=== PATIENT | female | born 1965 | race Caucasian/White ===

== ENCOUNTER 2019-08-08 13:21 | Emergency (ER) | payer MEDICARE, MEDICAID ==
[~2019-08-08] VITALS: Ht 154.9 cm; Wt 85.9 kg
[2019-08-08 13:26] VITALS: TEMP 98.2
[2019-08-08 14:35] LABS: BASO % 0.2 % (0.0-2.0); EOS # 0.2 (0.0-0.7); EOS % 1.7 % (0-4.0); GRAN # 6.1 (1.4-6.5); GRAN % 65.6 % (42.2-75.2); LYMPH # 2.1 (1.2-3.4); LYMPH % 22.9 % (20.0-51.0); MEAN CELL VOLUME 93 fl (80.0-100.0); MEAN CORPUSCULAR HGB CONC 28 g/dl (33.0-37.0); MEAN PLATELET VOLUME 10.9 fl (7.4-10.4); MONO # 0.8 (0.1-0.6); MONO % 8.6 % (1.7-9.3); PLATELET COUNT 178 K/mm3 (130-400); RED BLOOD COUNT 3.15 M/mm3 (4.10-5.30); REDCELL DISTRIBUTION WIDTH-CV 16.3 % (11.5-14.5)
[2019-08-08 14:41] LABS: ALBUMIN 4.1 gm/dL (3.5-5.0); BILIRUBIN,TOTAL 0.2 mg/dL (0.0-1.0); CREATININE, serum 0.55 (0.52-1.25); HEMATOCRIT 29.2 % (37.0-47.0); HEMOGLOBIN 8.1 g/dl (12.5-16.0); MEAN CORPUSCULAR HEMOGLOBIN 26 pg (27.0-31.0); POTASSIUM 3.9 mmol/L (3.4-5.0); TOTAL PROTEIN 8.2 gm/dL (6.4-8.2)
[2019-08-08 14:44] LABS: INR 1.1 (0.8-3.0); PROTHROMBIN TIME 12.5 SECONDS (9.7-12.8)
[2019-08-08 14:54] LABS: TROPONIN-I 2.59 ng/mL (0.000-0.035)
[2019-08-08] MEDS ORDERED: TRESIBA FL100 UNIT/1 SQ (15:23)
[2019-08-08] MEDS ORDERED: NOVOLOG FLEX100 U/ML SQ (15:24)
[2019-08-08] MEDS ORDERED: PAXIL 20MG20 MG PO (15:25)
[2019-08-08] MEDS ORDERED: PROTONIX20 MG PO (15:26)
[2019-08-08] MEDS ORDERED: JARDIANCE10 (15:26)
[2019-08-08] MEDS ORDERED: MS CONTIN 115 MG/TAB PO (15:27)
[2019-08-08] MEDS ORDERED: DULCOLAX STOOL100 MG PO (15:28)
[2019-08-08] MEDS ORDERED: ASPIRIN 81M81 MG/TA2 PO (15:41)
[2019-08-08] MEDS ORDERED: NEURONTIN300 MG/CAP PO (15:43)
[2019-08-08] MEDS ORDERED: ULTRAM 50MG TAB50 MG PO (15:43)
[2019-08-08] MEDS ORDERED: MORPHINE 1515 MG/TAB PO (15:44)
[2019-08-08] MEDS ORDERED: TYLENOL 325MG325 MG PO (15:46)
[2019-08-08] MEDS ORDERED: AFRIN 15 ML15 ML NS (15:46)
[2019-08-08 16:25] VITALS: BP 163/90; PULSE 84
== END 2019-08-08 16:28 | disposition short-term general hospital (02) ==
LOC: COL.ER 13:21
PROVIDERS: Emergency Medicine
DX: I21.9 Acute myocardial infarction, unspecified (principal); R79.89 Other specified abnormal findings of blood chemistry; R94.31 Abnormal electrocardiogram [ECG] [EKG]; E10.9 Type 1 diabetes mellitus without complications; Z79.4 Long term (current) use of insulin
CPT/HCPCS: J1644; J7070

== ENCOUNTER 2022-06-28 07:30 | Outpatient (RCR) | payer MEDICARE, MEDICAID ==
--- NOTE | 2022-06-26 07:25 | NUR ---
Spoke with Kristopher in blood bank, will have labs drawn and will have them sent out to confirm type and cross for irradiated prbcs. Will notify Pt's doctors office when open this am. Will notify patient later today when blood will be available for transfusion and schedule.
[2022-06-28] VITALS (10 sets, daily range): BP systolic 118–153; BP diastolic 50–72; PULSE 55–72; TEMP 97.7–98.6
[~2022-06-28] VITALS: Ht 154.9 cm; Wt 83.6 kg
[~2022-06-28 07:30] MED LIST: AFRIN 15 ML15 ML NS; ASPIRIN 81M81 MG/TA2 PO; DULCOLAX STOOL100 MG PO; JARDIANCE10; MORPHINE 1515 MG/TAB PO; MS CONTIN 115 MG/TAB PO; NEURONTIN300 MG/CAP PO; NOVOLOG FLEX100 U/ML SQ; PAXIL 20MG20 MG PO; PROTONIX20 MG PO; TRESIBA FL100 UNIT/1 SQ; TYLENOL 325MG325 MG PO; ULTRAM 50MG TAB50 MG PO
[2022-06-28] MEDS ORDERED: LIPITOR 80MG80 MG PO (09:02)
[2022-06-28] MEDS ORDERED: ZITHROMAX 250M250 MG PO (09:03)
[2022-06-28] MEDS ORDERED: ZETIA 10MG TAB10 MG PO (09:04)
[2022-06-28] MEDS ORDERED: LASIX 20MG TABL20 MG PO (09:04)
[2022-06-28] MEDS ORDERED: BUSPAR DIVIDOSE15 MG PO (09:04)
[2022-06-28] MEDS ORDERED: ZESTRIL 10MG10 MG PO (09:06)
[2022-06-28] MEDS ORDERED: LOPRESSOR 550 MG/TAB PO (09:07)
[2022-06-28] MEDS ORDERED: SINGULAIR 110 MG/TAB PO (09:07)
[2022-06-28] MEDS ORDERED: AFRIN 15 ML15 ML NS (09:08)
[2022-06-28] MEDS ORDERED: ZOLOFT 100MG100 MG PO (09:08)
[2022-06-28] MEDS ORDERED: DESYREL 50MG50 MG PO (09:09)
[2022-06-28] MEDS ORDERED: VITAMIN D31000 I1 PO (09:10)
[2022-06-28] MEDS ORDERED: NOVOLOG 100U100 U/M1 (09:12)
--- NOTE | 2022-06-28 12:50 | NUR ---
Pt exits dept with son. She tolerated transfusions without issue. IV site wrapped with coban.
== END 2022-06-28 12:50 ==
LOC: EUO 07:30
DX: D64.9 Anemia, unspecified (principal)
CPT/HCPCS: J7050; P9040

== ENCOUNTER 2022-11-17 13:40 | Inpatient (IN) | payer MEDICARE, MEDICAID ==
[~2022-11-17] VITALS: Ht 154.9 cm; Wt 87.3 kg
[2022-11-17] VITALS (216 sets, daily range): BP systolic 84–91; BP diastolic 41–43; PULSE 60–80; TEMP 98.1; O2SAT 32–100
[~2022-11-17 13:40] MED LIST changes: +BUSPAR DIVIDOSE15 MG PO; +DESYREL 50MG50 MG PO; +LASIX 20MG TABL20 MG PO; +LIPITOR 80MG80 MG PO; +LOPRESSOR 550 MG/TAB PO; +NOVOLOG 100U100 U/M1; +SINGULAIR 110 MG/TAB PO; +VITAMIN D31000 I1 PO; +ZESTRIL 10MG10 MG PO; +ZETIA 10MG TAB10 MG PO; +ZITHROMAX 250M250 MG PO; +ZOLOFT 100MG100 MG PO
[2022-11-17 14:27] LABS: BASO % 0.3 % (0.0-2.0); EOS # 0.3 K/mm3 (0.0-0.7); EOS % 3.6 % (0.0-4.0); GRAN # 3.8 K/mm3 (1.4-6.5); GRAN % 48.1 % (42.2-75.2); HEMATOCRIT 30.3 % (37.0-47.0); LYMPH # 2.8 K/mm3 (1.2-3.4); MEAN CELL VOLUME 104 fl (80.0-100.0); MEAN CORPUSCULAR HEMOGLOBIN 31 pg (27-31); MEAN CORPUSCULAR HGB CONC 30 g/dl (33.0-37.0); MEAN PLATELET VOLUME 12.2 fl (7.4-10.4); MONO # 0.9 K/mm3 (0.1-0.6); MONO % 11.5 % (1.7-9.3); PLATELET COUNT 100 K/mm3 (130-400); RED BLOOD COUNT 2.91 M/mm3 (4.10-5.30)
[2022-11-17 15:32] LABS: COLLECTION METHOD IN
[2022-11-17 15:49] LABS: MUCOUS Present (NOT PRESENT); SQUAMOUS EPITHELIAL None Seen /hpf (0-10); URINE APPEARANCE Clear (CLEAR/HAZY); URINE BACTERIA None Seen /hpf (NONE SEEN); URINE COLOR Yellow (YELLOW); URINE GLUCOSE 2+ (NEGATIVE); URINE PROTEIN(semi-quant) Negative (NEGATIVE); URINE RBC 0-2 /hpf (0-2)
[2022-11-17 15:50] LABS: URINE BLOOD Negative (NEGATIVE); URINE KETONE Negative (NEGATIVE); URINE NITRATE Negative (NEGATIVE); URINE UROBILINOGEN 0.2 E.U/dL (0.2-1.0)
[2022-11-17 15:54] LABS: ALBUMIN 3.5 gm/dL (3.5-5.0); BILIRUBIN,TOTAL 0.6 mg/dL (0.2-1.2); CALCIUM 8.7 mg/dL (8.4-10.2); CREATININE, serum 0.8 mg/dL (0.57-1.11); POTASSIUM 4.5 mmol/L (3.5-4.5); TOTAL PROTEIN 6.5 gm/dL (6.2-8.1)
[2022-11-17] MEDS ORDERED: 00186-0370-20 IH (16:57)
[2022-11-17] MEDS ORDERED: VITAMIN D362.5 MC1 PO (16:58)
[2022-11-17 17:08] LABS: ARTERIAL BLD GAS O2 SATURATION 84.4 % (92-100); ARTERIAL BLD GAS TCO2 CT 60.3; ARTERIAL BLOOD GAS BASE EXCESS 22.1 (-2-2); ARTERIAL BLOOD GAS HCO3 55.5 meq/L (22-26)
[2022-11-17 17:10] LABS: ARTERIAL BLOOD GAS PCO2 156.6 mmHg (35-45); ARTERIAL BLOOD GAS pH 7.17 (7.35-7.45)
--- NOTE | 2022-11-17 18:45 | NUR ---
RECIEVED REPORT FROM YOLI. PT IS STABLE FOR TRANSPORT TO ICU.
--- NOTE | 2022-11-17 19:00 | NUR ---
PT ARRIVED TO ICU 2. ON BIPAP. TRANSFERED TO ICU BED. SON TAKEN TO WAITING ROOM AT THIS TIME. PT ALERT AND ORIENTED, LABORED BREATHING. VERY DIMINISHED BREATH SOUNDS. B/P "SOFT" PER REPORT FROM TRANSFERING NURSE. 100/52 AT THE TIME OF TRANSFER. 500ML LR BOLUS RUNNING AT THIS TIME. BIPAP 18/8 55% FIO2
--- NOTE | 2022-11-17 20:00 | NUR ---
DR. SLOAN AT BEDSIDE. LENGTHY CONVERSATION WITH RENÉE (BEDSIDE), TOMÁS AND TOMY NICOLE (ON SPEAKER) ABOUT INTUBATION VERSUS STAYING WITH BIPAP AND THE PATIENTS WISHES FOR HER CARE. AFTER A LONG DISCUSSION, WE WILL STAY WITH FULL CODE. INTUBATE IF NECESSARY, BUT WILL AVOID IT IF AT ALL POSSIBLE. WILL REPORT THIS OFF TO DR. PARRA WELL.
[2022-11-17 20:01] LABS: ARTERIAL BLD GAS O2 SATURATION 97.7 % (92-100); ARTERIAL BLD GAS TCO2 CT 60.3; ARTERIAL BLOOD GAS BASE EXCESS 23.7 (-2-2); ARTERIAL BLOOD GAS HCO3 55.7 meq/L (22-26); ARTERIAL BLOOD GAS PO2 112.6 mmHg (80-100)
[2022-11-17 20:02] LABS: ARTERIAL BLOOD GAS PCO2 149.6 mmHg (35-45); ARTERIAL BLOOD GAS pH 7.19 (7.35-7.45)
[2022-11-17 21:40] LABS: ARTERIAL BLD GAS O2 SATURATION 98.1 % (92-100); ARTERIAL BLD GAS TCO2 CT 59.5; ARTERIAL BLOOD GAS BASE EXCESS 23.4 (-2-2)
[2022-11-17 21:41] LABS: ARTERIAL BLOOD GAS PCO2 145.6 mmHg (35-45); ARTERIAL BLOOD GAS PO2 126.9 mmHg (80-100)
[2022-11-18] VITALS (935 sets, daily range): BP systolic 74–170; BP diastolic 44–79; PULSE 54–65; TEMP 97.8–99.6; O2SAT 92–100
[2022-11-18 01:23] LABS: ARTERIAL BLD GAS O2 SATURATION 98.3 % (92-100); ARTERIAL BLD GAS TCO2 CT 48.9; ARTERIAL BLOOD GAS BASE EXCESS 20.7 (-2-2); ARTERIAL BLOOD GAS HCO3 46.8 meq/L (22-26); ARTERIAL BLOOD GAS PCO2 67.3 mmHg (35-45); ARTERIAL BLOOD GAS PO2 103.4 mmHg (80-100); ARTERIAL BLOOD GAS pH 7.46 (7.35-7.45)
--- NOTE | 2022-11-18 02:00 | NUR ---
Patient care, medication administration and nursing documentation occurred during a Daylight Savings Time Change.
--- NOTE | 2022-11-18 05:00 | NUR ---
NO SEDATION VACATION AT THIS TIME DUE TO RECENT INTUBATION AND INSTABILITY
[2022-11-18 05:55] LABS: CALCIUM 8.2 mg/dL (8.4-10.2); CREATININE, serum 1.1 mg/dL (0.57-1.11); PHOSPHOROUS 1.3 mg/dL (2.3-4.7)
--- NOTE | 2022-11-18 06:00 | NUR ---
11/17 - DR VUONG HERE TO PUT IN CENTRAL LINE. PT BECAME AGGITATED, CONFUSED AND PULLING OFF BIPAP MASK. ATTEMPTED TO PUT ON NASAL CANNULA PER PT INSISTENT REQUEST. DESAT TO 40% BEFORE THE PATIENT WOULD ALLOW THE BIPAP MASK TO BE PUT BACK ON HER FACE. CALLED DR. PARRA WHO RECOMMENDED INTUBATING HER. CALLED SON'S IN FROM WAITING ROOM TO VERIFY THAT THAT IS WHAT THEY WANT AND THAT WE NEED TO INTUBATE HER NOW. THE DISCUSSED WITH THE PATIENT. THE SONS DECIDED THAT INTUBATION WAS BEST FOR THE PATIENT AT THIS TIME. CHARLES DOTY HERE TO INTUBATE. 2304 - TIME OUT FOR INTUBATION RSI INDUCTION STARTED 100MG PROPOFOL FOLLOWED BY 100MG SUCCS 2307 - INTUBATION COMPLETE 7.5 ET TUBE, 22CM @ TEETH. 2311 - tIME OUT FOR CENTRAL LINE. DR. VUONG STARTS CENTRAL LINE INSERTION. PROPOFOL DRIP STARTED TO MAINTAIN SEDATION AND COMFORT. 2327 - CENTRAL LINE PLACEMENT COMPLETED. X-RAY CALLED FOR PORT XRAY. 2345 - FIDEL CALLED FOR HYPOTENSION AFTER STARTING SEDATION. AT THIS TIME THE PATIENT IS WIDE AWAKE, B/P 84/43. UNABLE TO ADEQUATELY SEDATE WITHOUT PRESSURE SUPPORT. ORDER FROM DR. PARRA TO GIVE 1L LR BOLUS AND START LEVOPHED DRIP IF NECESSARY TO MAINTAIN SBP 90 AND MAP 65.
[2022-11-18 06:04] LABS: BASO % 0.1 % (0.0-2.0); GRAN % 85.8 % (42.2-75.2); LYMPH # 0.6 K/mm3 (1.2-3.4); LYMPH % 6.9 % (20.0-51.0); MEAN CELL VOLUME 104 fl (80.0-100.0); MEAN CORPUSCULAR HGB CONC 30 g/dl (33.0-37.0); MEAN PLATELET VOLUME 11.5 fl (7.4-10.4); MONO # 0.5 K/mm3 (0.1-0.6); MONO % 6.5 % (1.7-9.3); PLATELET COUNT 72 K/mm3 (130-400); RED BLOOD COUNT 1.88 M/mm3 (4.10-5.30); REDCELL DISTRIBUTION WIDTH-CV 13.9 % (11.5-14.5)
[2022-11-18 06:09] LABS: HEMATOCRIT 19.5 % (37.0-47.0); HEMOGLOBIN 5.9 g/dl (12.5-16.0); MEAN CORPUSCULAR HEMOGLOBIN 31 pg (27-31)
--- NOTE | 2022-11-18 07:30 | NUR ---
UPDATE GIVEN TO TOMÁS PER HIS REQUEST. HE WILL COME THIS MORNING TO BE HERE DURING ROUNDING.
[2022-11-18 08:23] LABS: ARTERIAL BLD GAS O2 SATURATION 95.6 % (92-100); ARTERIAL BLD GAS TCO2 CT 46.8; ARTERIAL BLOOD GAS BASE EXCESS 18.3 (-2-2); ARTERIAL BLOOD GAS HCO3 44.7 meq/L (22-26); ARTERIAL BLOOD GAS PCO2 69.5 mmHg (35-45); ARTERIAL BLOOD GAS PO2 76.1 mmHg (80-100); ARTERIAL BLOOD GAS pH 7.43 (7.35-7.45)
[2022-11-18] MEDS ORDERED: JARDIANCE10 PO (08:38)
[2022-11-18] MEDS ORDERED: PRINIVIL10 MG PO (08:39)
[2022-11-18 10:53] LABS: MEAN CELL VOLUME 101 fl (80.0-100.0); MEAN CORPUSCULAR HGB CONC 31 g/dl (33.0-37.0); PLATELET COUNT 84 K/mm3 (130-400); RED BLOOD COUNT 1.98 M/mm3 (4.10-5.30); REDCELL DISTRIBUTION WIDTH-CV 14.2 % (11.5-14.5)
[2022-11-18 10:58] LABS: HEMATOCRIT 19.9 % (37.0-47.0); HEMOGLOBIN 6.1 g/dl (12.5-16.0); MEAN CORPUSCULAR HEMOGLOBIN 31 pg (27-31)
--- NOTE | 2022-11-18 11:10 | NUR ---
Choir Accompanist rounds: Patient intubated. RN came into room as Choir Accompanist was beginning to pray to conduct oral care. RN encouraged Choir Accompanist to remain and carry on. Son Go arrived as well. RN and Go were present while Choir Accompanist prayed for Patient. Choir Accompanist also read from Lenten devotional.
[2022-11-18 13:08] LABS: BAND 10 % (0-10); EOSINOPHIL 1 % (0-4); LYMPHOCYTE 4 % (20.0-51.0); NEUTROPHILS 83 % (42.0-75.2); PLATELET ESTIMATE DECREASED (NORMAL)
[2022-11-18 13:09] LABS: HYPOCHROMIA 1+; OVALOCYTES 1+
--- NOTE | 2022-11-18 14:25 | NUR ---
TUBE FEEDING STARTED PER PROTOCOL.
[2022-11-18 19:07] LABS: HEMATOCRIT 21.4 % (37.0-47.0)
--- NOTE | 2022-11-18 19:57 | NUR ---
ATTENPTED TO SUCTION ET TUBE, NO RETURN WITH SUCTIONING
--- NOTE | 2022-11-18 23:45 | NUR ---
Patient restless in bed; pulling at restraints and eyes spontaneously opening. Follow verbal commands appropriately and nods head yes when asked if she remembers being in the hospital. Denies being in any pain. Will continue to monitor.
[2022-11-19] VITALS (1228 sets, daily range): BP systolic 114–139; BP diastolic 57–80; PULSE 57–75; TEMP 97.8–98.8; O2SAT 92–100
--- NOTE | 2022-11-19 04:55 | NUR ---
Patient opening eyes spontaneously and is pulling up against restraints and has reached up towards her mouth several times. Able to follow commands and be re-directed. Observed also grimacing and attempting to machinery mover her legs and reach to touch them. Nodded yes when asked if her legs hurt. Sedation and pain medication increased for patient comfort.
--- NOTE | 2022-11-19 05:05 | NUR ---
Sedation vacation not performed due to patient being restless in bed and pulling up at restraints. Patient makes eye contact with nurse and can follow verbal commands on current sedation level.
[2022-11-19 05:15] LABS: ARTERIAL BLD GAS O2 SATURATION 93.8 % (92-100); ARTERIAL BLD GAS TCO2 CT 43.5; ARTERIAL BLOOD GAS HCO3 41.1 meq/L (22-26); ARTERIAL BLOOD GAS PO2 73.1 mmHg (80-100); ARTERIAL BLOOD GAS pH 7.34 (7.35-7.45)
[2022-11-19 05:17] LABS: ARTERIAL BLOOD GAS PCO2 77.2 mmHg (35-45)
[2022-11-19 05:50] LABS: BASO % 0.1 % (0.0-2.0); GRAN # 13.5 K/mm3 (1.4-6.5); GRAN % 88.4 % (42.2-75.2); LYMPH # 0.7 K/mm3 (1.2-3.4); LYMPH % 4.5 % (20.0-51.0); MEAN CORPUSCULAR HGB CONC 33 g/dl (33.0-37.0); MEAN PLATELET VOLUME 12.6 fl (7.4-10.4); MONO # 0.9 K/mm3 (0.1-0.6); MONO % 6.2 % (1.7-9.3); PLATELET COUNT 80 K/mm3 (130-400); RED BLOOD COUNT 2.71 M/mm3 (4.10-5.30); REDCELL DISTRIBUTION WIDTH-CV 17.9 % (11.5-14.5)
[2022-11-19 05:51] LABS: HEMATOCRIT 25.7 % (37.0-47.0); HEMOGLOBIN 8.5 g/dl (12.5-16.0); MEAN CELL VOLUME 95 fl (80.0-100.0); MEAN CORPUSCULAR HEMOGLOBIN 31 pg (27-31)
[2022-11-19 06:06] LABS: ALBUMIN 2.8 gm/dL (3.5-5.0); BILIRUBIN,TOTAL 0.7 mg/dL (0.2-1.2); CREATININE, serum 1.1 mg/dL (0.57-1.11); MAGNESIUM 2.4 mg/dL (1.6-2.6); PHOSPHOROUS 5.1 mg/dL (2.3-4.7); POTASSIUM 4.9 mmol/L (3.5-4.5); TOTAL PROTEIN 5.7 gm/dL (6.2-8.1)
--- NOTE | 2022-11-19 10:07 | NUR ---
Patient currently intubated and sedated.SW met with patients son Brodie ([phone]) at bedside to complete intake. Per Brodie, he and the patient live together in [place]. Patient is independent with her cares, but due to her history of falls, patient has to have supervision with her ADL's. Brodie states that the patient fell and broke her foot this past June and had home health services, but is no longer requiring them. She has access to a cane, walker and wheelchair at home but does not utilize them. She is on 5L of [place] oxygen at home 01/04 that is managed through [facility] in [place]. PCP is Dr. Lola Nicole and she utilizes [facility] for prescriptions. Patient does have a DPOA-HC established listing Brodie as her agent and a copy can be found on her paper chart.
[2022-11-19 11:23] LABS: MEAN CELL VOLUME 95 fl (80.0-100.0); MEAN CORPUSCULAR HGB CONC 33 g/dl (33.0-37.0); MEAN PLATELET VOLUME 12.2 fl (7.4-10.4); PLATELET COUNT 87 K/mm3 (130-400); RED BLOOD COUNT 2.69 M/mm3 (4.10-5.30)
[2022-11-19 11:28] LABS: HEMATOCRIT 25.6 % (37.0-47.0); HEMOGLOBIN 8.5 g/dl (12.5-16.0); MEAN CORPUSCULAR HEMOGLOBIN 32 pg (27-31)
--- NOTE | 2022-11-19 18:33 | NUR ---
SEDATION VACATION NOT COMPLETEY DUE TO TRANSFER IN TO OTHER FACILITY.
[2022-11-19 20:23] LABS: HEMATOCRIT 25.6 % (37.0-47.0); HEMOGLOBIN 8.4 g/dl (12.5-16.0)
[2022-11-20] VITALS (1232 sets, daily range): BP systolic 70–187; BP diastolic 40–88; PULSE 60–77; TEMP 97–99; O2SAT 86–100
[2022-11-20 04:23] LABS: BASO % 0.2 % (0.0-2.0); GRAN # 11.5 K/mm3 (1.4-6.5); GRAN % 89.3 % (42.2-75.2); LYMPH # 0.5 K/mm3 (1.2-3.4); LYMPH % 4.2 % (20.0-51.0); MEAN CELL VOLUME 95 fl (80.0-100.0); MEAN CORPUSCULAR HGB CONC 33 g/dl (33.0-37.0); MEAN PLATELET VOLUME 12.1 fl (7.4-10.4); MONO # 0.7 K/mm3 (0.1-0.6); MONO % 5.3 % (1.7-9.3); PLATELET COUNT 93 K/mm3 (130-400); RED BLOOD COUNT 2.63 M/mm3 (4.10-5.30); REDCELL DISTRIBUTION WIDTH-CV 17.3 % (11.5-14.5)
[2022-11-20 04:29] LABS: HEMOGLOBIN 8.3 g/dl (12.5-16.0); MEAN CORPUSCULAR HEMOGLOBIN 32 pg (27-31)
[2022-11-20 04:31] LABS: CREATININE, serum 0.88 mg/dL (0.57-1.11); MAGNESIUM 2.8 mg/dL (1.6-2.6)
[2022-11-20 05:16] LABS: ARTERIAL BLD GAS O2 SATURATION 92.4 % (92-100); ARTERIAL BLD GAS TCO2 CT 42.9; ARTERIAL BLOOD GAS BASE EXCESS 12.7 (-2-2); ARTERIAL BLOOD GAS HCO3 40.5 meq/L (22-26); ARTERIAL BLOOD GAS PO2 69.3 mmHg (80-100); ARTERIAL BLOOD GAS pH 7.34 (7.35-7.45)
[2022-11-20 05:17] LABS: ARTERIAL BLOOD GAS PCO2 76.3 mmHg (35-45)
--- NOTE | 2022-11-20 10:51 | NUR ---
BEDSIDE REPORT RECEIVED FROM CARLOSE NRIQUE SPRAGUE. PT ON VENTILATOR, 7.5CM ETT MEASURES 23CM AT TEETH, TV 400, PEEP 5, FIO2 40%, RATE 14. OG IN PLACE, MEASURES 55CM AT LIP, TUBE FEEDINGS INFUSING AT 35ML/HR. DRESSING TO INJ TRIPLE LUMEN CDI, SEDATION AND FLUIDS INFUSING ORDERED, SEE MAR/FLOWSHEET. KELLY CATHETER IN PLACE TO DEPENDENT DRAINAGE. KNEE EMBOLIZERS IN PLACE TO BOTH LEGS, HEELS FLOATED ON PILLOWS. PT REPOSITIONED Q2HR TO PREVENT SKIN BREAKDOWN.
--- NOTE | 2022-11-20 15:00 | NUR ---
PT AWAY TO SURGERY AT THIS TIME. ENTIRE CIRCUIT CHANGE PERFORMED.
--- NOTE | 2022-11-20 17:14 | NUR ---
PT TO OR FOR TIB/FIB FRACTURE REPAIR AT 1400. PT RETURNED TO UNIT AT 1618. SEDATION, FLUIDS, TUBE FEEDINGS RESUMED ORDERED. PER SURGICAL NURSE DRESSING TO ANTERIOR BLE INCLUDES SKIN GLUE, 4X4 GAUZE, ABD PADS, SOFT ROLL, GUSTAVO WRAP. DRESSINGS APPEAR CDI. KNEE IMMOBILIZERS IN PLACE TO BOTH LEGS. PEDAL PULSES INTACT AND EQUAL.
--- NOTE | 2022-11-20 19:35 | NUR ---
ambu bag at [facility], vent plugged into red outlet
[2022-11-21] VITALS (1245 sets, daily range): BP systolic 121–144; BP diastolic 48–65; PULSE 59–80; TEMP 98.6–100.4; O2SAT 89–100
[2022-11-21 05:56] LABS: BASO % 0.1 % (0.0-2.0); GRAN # 8.3 K/mm3 (1.4-6.5); GRAN % 83.6 % (42.2-75.2); LYMPH # 0.7 K/mm3 (1.2-3.4); LYMPH % 6.5 % (20.0-51.0); MEAN CORPUSCULAR HGB CONC 31 g/dl (33.0-37.0); MEAN PLATELET VOLUME 11.4 fl (7.4-10.4); MONO # 0.9 K/mm3 (0.1-0.6); MONO % 8.8 % (1.7-9.3); PLATELET COUNT 89 K/mm3 (130-400); RED BLOOD COUNT 2.53 M/mm3 (4.10-5.30); REDCELL DISTRIBUTION WIDTH-CV 16.7 % (11.5-14.5)
[2022-11-21 06:00] LABS: HEMATOCRIT 25.6 % (37.0-47.0); HEMOGLOBIN 7.9 g/dl (12.5-16.0); MEAN CELL VOLUME 101 fl (80.0-100.0); MEAN CORPUSCULAR HEMOGLOBIN 31 pg (27-31)
[2022-11-21 06:10] LABS: CALCIUM 7.8 mg/dL (8.4-10.2); CREATININE, serum 0.8 mg/dL (0.57-1.11); PHOSPHOROUS 3.3 mg/dL (2.3-4.7); POTASSIUM 4.7 mmol/L (3.5-4.5)
[2022-11-21 07:51] LABS: ARTERIAL BLOOD GAS PCO2 78.6 mmHg (35-45); ARTERIAL BLOOD GAS pH 7.35 (7.35-7.45)
[2022-11-21 07:52] LABS: ARTERIAL BLD GAS O2 SATURATION 91.8 % (92-100); ARTERIAL BLOOD GAS BASE EXCESS 14.4 (-2-2); ARTERIAL BLOOD GAS HCO3 42.2 meq/L (22-26); ARTERIAL BLOOD GAS PO2 67.3 mmHg (80-100)
--- NOTE | 2022-11-21 13:10 | NUR ---
Sales Associate Key Holder was contacted by RN who advised patient's daughter, Jazzy Shelton is requesting a letter verifying her mother is admitted to the hospital. SW provided this letter to Jazzy via secure email.
--- NOTE | 2022-11-21 14:32 | NUR ---
SPOKE TO HOSPITALIST ABOUT PT TEMP. NEW ORDERS PLACED.
--- NOTE | 2022-11-21 18:34 | NUR ---
SEDATION VACATION NOT ATTEMPTED AT THIS TIME PT NEEDED INCREASE IN SEDATION TODAY.
[2022-11-22] VITALS (1198 sets, daily range): BP systolic 121–164; BP diastolic 52–74; PULSE 61–84; TEMP 97.5–98.6; O2SAT 81–100
[2022-11-22 05:37] LABS: MEAN CELL VOLUME 103 fl (80.0-100.0); MEAN CORPUSCULAR HGB CONC 30 g/dl (33.0-37.0); MEAN PLATELET VOLUME 11.9 fl (7.4-10.4); PLATELET COUNT 98 K/mm3 (130-400); RED BLOOD COUNT 2.34 M/mm3 (4.10-5.30); REDCELL DISTRIBUTION WIDTH-CV 16.2 % (11.5-14.5)
[2022-11-22 05:43] LABS: HEMATOCRIT 24.2 % (37.0-47.0); HEMOGLOBIN 7.3 g/dl (12.5-16.0); MEAN CORPUSCULAR HEMOGLOBIN 31 pg (27-31)
[2022-11-22 05:55] LABS: ALBUMIN 2.3 gm/dL (3.5-5.0); BILIRUBIN,TOTAL 0.5 mg/dL (0.2-1.2); CALCIUM 7.9 mg/dL (8.4-10.2); CREATININE, serum 0.79 mg/dL (0.57-1.11); MAGNESIUM 3.1 mg/dL (1.6-2.6); PHOSPHOROUS 2.7 mg/dL (2.3-4.7); POTASSIUM 4.8 mmol/L (3.5-4.5); TOTAL PROTEIN 5.6 gm/dL (6.2-8.1)
--- NOTE | 2022-11-22 05:55 | NUR ---
Patient is awake and alert, follows commands and can answer yes and no questions. Sedation vacation not attempted at this time due to patient being awake.
[2022-11-22 06:11] LABS: BAND 6 % (0-10); LYMPHOCYTE 11 % (20.0-51.0); METAMYELOCYTE 1 % (0-0); NEUTROPHILS 79 % (42.0-75.2)
[2022-11-22 06:12] LABS: ANISOCYTOSIS 1+; HYPOCHROMIA 3+; PLATELET ESTIMATE DECREASED (NORMAL); POLYCHROMASIA 1+
--- NOTE | 2022-11-22 16:17 | NUR ---
[facility] CONTACTED FOR WOUND CONSULT PER DR. ROWLAND. [facility] DOCTOR OF WOUND CLINIC STATED ALEX HARLEY RN, [facility] WAS ON VACATION AND NOT CONSULTING PT IN HOSPITAL AGAIN UNTIL December. NO OTHER PROVIDERS AVAIL. RECEPETIONIST STATED IF STILL IN HOSPTIAL AT THAT TIME SHE WILL SEE PT THEN OR CAN SEE ON OUTPT. BASIS.
--- NOTE | 2022-11-22 16:37 | NUR ---
6120 DR[address] SMITH NURSE CALLED AND STATED DR. SMITH WOULD CONSULT PT HIMSELF [facility] IS OUT. WILL COME AFTER CLINIC TONIGHT.
--- NOTE | 2022-11-22 16:43 | NUR ---
1402 PT EXBUTATED WITH RT AND X2 NURSES IN ROOM. PT TOLERATED WELL. OXYMASK PLACED AT 6L. AIRWAY STABLE AT THIS TIME. THIS NURSE ASKED PT IF SHE NEEDED TO BE REINTUBATED IF SHE WANTED TO BE PT STATED "NO". FAMILY UPDATED, FAMILY AGREED WELL FOR DNI. FAMILY AT BEDSIDE.
--- NOTE | 2022-11-22 20:30 | NUR ---
Patient assessment completed. Patient is alert and oriented to place and reason for admission. When asked what year it was patient responded with "[birth year]22". Vital signs are stable, and patient was titrated down to 5L via oxymask and sating 99%. Patient repositioned in bed to remain off their coccyx. Patient's call light left within reach.
[2022-11-23] VITALS (1358 sets, daily range): BP systolic 141–149; BP diastolic 66–71; PULSE 73–84; TEMP 98.6–98.9; O2SAT 76–100
--- NOTE | 2022-11-23 00:26 | NUR ---
Patient's blood sugar resulted at 64. 1/2 an amp of D50 given. Will reassess sugar in approximately 30 minutes.
--- NOTE | 2022-11-23 00:45 | NUR ---
Patient's blood sugar reassessed, patients current sugar is 84.
--- NOTE | 2022-11-23 03:13 | NUR ---
Patient called using the call light and stated she felt her sugar was low. RN assessed patient's blood sugar and it was 69. 1/2 Amp D50 given. Will reassess sugar in approximately 30 minutes.
[2022-11-23 04:57] LABS: MEAN CELL VOLUME 107 fl (80.0-100.0); MEAN CORPUSCULAR HGB CONC 29 g/dl (33.0-37.0); MEAN PLATELET VOLUME 11.3 fl (7.4-10.4); PLATELET COUNT 122 K/mm3 (130-400); RED BLOOD COUNT 2.42 M/mm3 (4.10-5.30); REDCELL DISTRIBUTION WIDTH-CV 15.9 % (11.5-14.5)
[2022-11-23 04:58] LABS: HEMATOCRIT 25.8 % (37.0-47.0); HEMOGLOBIN 7.5 g/dl (12.5-16.0); MEAN CORPUSCULAR HEMOGLOBIN 31 pg (27-31)
[2022-11-23 05:16] LABS: ANISOCYTOSIS 1+; BAND 8 % (0-10); EOSINOPHIL 1 % (0-4); HYPOCHROMIA 3+; LYMPHOCYTE 13 % (20.0-51.0); NEUTROPHILS 72 % (42.0-75.2); PLATELET ESTIMATE DECREASED (NORMAL)
[2022-11-23 05:17] LABS: ALBUMIN 2.4 gm/dL (3.5-5.0); BILIRUBIN,TOTAL 0.6 mg/dL (0.2-1.2); CALCIUM 8.4 mg/dL (8.4-10.2); CREATININE, serum 0.67 mg/dL (0.57-1.11); MAGNESIUM 2.9 mg/dL (1.6-2.6); PHOSPHOROUS 2.2 mg/dL (2.3-4.7); POTASSIUM 4.2 mmol/L (3.5-4.5); STOMATOCYTE 2+; TARGET CELLS 1+; TOTAL PROTEIN 5.8 gm/dL (6.2-8.1)
--- NOTE | 2022-11-23 06:33 | NUR ---
Patient used call light for assistance, patient is alert and oriented x4. At the beginning of shift patient was oriented to place and situation but was unable to tell RN what year it was. Patient is now able to answer time, place, self, and situation. Patients hand coordination has also improved.
--- NOTE | 2022-11-23 09:16 | NUR ---
Initial visit; Patient thanked Senior Technical Specialist for offering encouragement as she experiences being taken off of the ventilator. Patient appears to be ok with Senior Technical Specialist offering God's blessings and congratulations for being healthy enough to be removed from the vent and Senior Technical Specialist wishing her continued healing.
--- NOTE | 2022-11-23 13:11 | NUR ---
Linux Programmer met with patient to review discharge planning. Patient to be non weight bearing for 6-8 weeks and is agreeable to placement in a halfway facility. Patient would like referrals sent to [facility] and [facility]. SW gave referral to each facility. MITCHEL then contacted patient's son, Brodie to provide update.
[2022-11-23 17:09] LABS: POTASSIUM 4.4 mmol/L (3.5-4.5)
[2022-11-24] VITALS (1411 sets, daily range): BP systolic 116–169; BP diastolic 60–78; PULSE 63–95; TEMP 98–98.8; O2SAT 55–100
[2022-11-24 05:39] LABS: MEAN CORPUSCULAR HGB CONC 30 g/dl (33.0-37.0); MEAN PLATELET VOLUME 11.1 fl (7.4-10.4); PLATELET COUNT 124 K/mm3 (130-400); RED BLOOD COUNT 2.35 M/mm3 (4.10-5.30); REDCELL DISTRIBUTION WIDTH-CV 15.3 % (11.5-14.5)
[2022-11-24 05:50] LABS: HEMOGLOBIN 7.3 g/dl (12.5-16.0); MEAN CELL VOLUME 102 fl (80.0-100.0); MEAN CORPUSCULAR HEMOGLOBIN 31 pg (27-31)
[2022-11-24 05:52] LABS: ALBUMIN 2.2 gm/dL (3.5-5.0); BILIRUBIN,TOTAL 0.8 mg/dL (0.2-1.2); CALCIUM 8.3 mg/dL (8.4-10.2); CREATININE, serum 0.59 mg/dL (0.57-1.11); TOTAL PROTEIN 5.1 gm/dL (6.2-8.1)
[2022-11-24 06:52] LABS: ANISOCYTOSIS 1+; BAND 2 % (0-10); EOSINOPHIL 2 % (0-4); LYMPHOCYTE 20 % (20.0-51.0); METAMYELOCYTE 1 % (0-0); NEUTROPHILS 66 % (42.0-75.2); PLATELET ESTIMATE NORMAL (NORMAL)
--- NOTE | 2022-11-24 07:29 | NUR ---
Patient had an uneventful night. Patient occasionally complained of bilateral leg pain due to surgery. Patients medications were given through the entire shift. Patient repositioned to take pressure off coccyx region. Call light is within reach and patient is resting comfortably.
--- NOTE | 2022-11-24 08:59 | NUR ---
BEDSIDE REPORT RECEIVED FROM CARLOS ENRIQUE EVERETT. PT RESTING IN BED, VSS, O2 SAT ABOVE 95% ON 5L/NC. RIJ CENTRAL LINE WNL, DRESSING CDI. KELLY CATHETER IN PLACE TO DEPENDENT DRAINAGE. LEG IMMOBILIZERS IN PLACE TO BOTH LEGS. PT ALERT AND ORIENTED, USES CALL LIGHT FOR NEEDS.
--- NOTE | 2022-11-24 11:38 | NUR ---
Mold Presser rounds: Patient was eating breakfast. Mold Presser visit offered. Patient declined.
--- NOTE | 2022-11-24 20:00 | NUR ---
SHIFT REPORT RECEIVED. PT ON 4L NC, WITH COARSE LUNG SOUDS ALL GREENE WITH DIMINISHED BASES. PT IN BL LEG IMMOBLIZERS S/P SX. +2 SWELLING IN BL FEET WITH PULSES PALPABLE. PT REPORTS CONSISTANT PAIN IN BLE OF 8/10 RANGING FROM DULL TO SHARP TO BURNING. PT RECEIVING ORAL AND IV MEDICATION FOR PAIN MANAGEMENT WELL ICE PACKS TO SX SITES. PT WITH HOME TRILLOGY BED TIME SLEEPING MACHINE. PT SP02 DECREASED TO 66% ON HOME MACHINE WHILE SLEEPING. PT PLACED ON HOSPITAL BI-PAP MACHINE AND SP02 RETURNED TO 96%. PT HAD 3 BM'S OF LARGE SOFT/LIQUID BROWN STOOL. BED LINENS CHANGED WITH EACH BM. STOOL SAMPLE SENT TO LAB FOR TESTING PER HOSPITALIST. PT WITH SKIN TEAR ON COCCYX COVERED WITH MEPLIX. PT ORIENTED TO OWN ABILITY. BED ALARMS ON AND CALL LIGHT IN REACH.
[2022-11-24 22:57] LABS: CLOSTRIDIUM DIFF A/B NEG
[2022-11-25] VITALS (564 sets, daily range): BP systolic 125–173; BP diastolic 49–70; PULSE 69–95; TEMP 98–98.9; O2SAT 77–100
[2022-11-25 05:45] LABS: ALBUMIN 2.1 gm/dL (3.5-5.0); BILIRUBIN,TOTAL 0.9 mg/dL (0.2-1.2); CALCIUM 8.3 mg/dL (8.4-10.2); CREATININE, serum 0.57 mg/dL (0.57-1.11); PHOSPHOROUS 2.8 mg/dL (2.3-4.7); POTASSIUM 3.9 mmol/L (3.5-4.5); TOTAL PROTEIN 5.2 gm/dL (6.2-8.1)
[2022-11-25 05:51] LABS: BASO % 0.1 % (0.0-2.0); EOS # 0.4 K/mm3 (0.0-0.7); EOS % 3.8 % (0.0-4.0); GRAN # 5.7 K/mm3 (1.4-6.5); GRAN % 60.9 % (42.2-75.2); LYMPH # 2.2 K/mm3 (1.2-3.4); LYMPH % 22.9 % (20.0-51.0); MEAN CELL VOLUME 100 fl (80.0-100.0); MEAN CORPUSCULAR HGB CONC 31 g/dl (33.0-37.0); MEAN PLATELET VOLUME 10.5 fl (7.4-10.4); PLATELET COUNT 112 K/mm3 (130-400); RED BLOOD COUNT 2.24 M/mm3 (4.10-5.30); REDCELL DISTRIBUTION WIDTH-CV 15.2 % (11.5-14.5)
[2022-11-25 05:55] LABS: HEMATOCRIT 22.3 % (37.0-47.0); MEAN CORPUSCULAR HEMOGLOBIN 31 pg (27-31)
--- NOTE | 2022-11-25 09:33 | NUR ---
BEDSIDE REPORT RECEIVED FROM CARLOS ENRIQUE MONTIEL. PT RESTING IN BED, VSS. PER REPORT PT DIDN'T USE TRILOGY MACHINE ALL NIGHT DUE TO ISSUES W/ MASK FITTING CORRECTLY, PT OPTED TO WEAR BIPAP INSTEAD. PT ON 4L PER NC AT THIS TIME, O2 SAT 96%. CENTRAL LINE TO [facility] WNL, DRESSING CDI. KELLY CATHETER IN PLACE TO DEPENDENT DRAINAGE. LEG IMMOBILIZERS IN PLACE TO BOTH LEGS, DRESSINGS TO SURGICAL INCISIONS ARE COVERED W/ GUSTAVO WRAPS. PEDAL PULSES STRONG AND EQUAL. PT IS ABLE TO MOVE INDEPENDENTLY IN BED BUT IS ALSO ON A TURNING SCHEDULE EVERY 2 HRS TO PREVENT SKIN BREAKDOWN. PT USES CALL LIGHT FOR NEEDS.
--- NOTE | 2022-11-25 15:59 | NUR ---
Patient received to unit via bed from ICU at 1200. Patient alert and oriented IJ with triple lumen on right neck intact. Knee immobilizer to bilateral knee intact. Patient has +1 edema to bilateral extremity. 02 4L/NC in use. Family oriented to room . Call rodriguez within reach.
--- NOTE | 2022-11-25 17:53 | NUR ---
1 unit of blood transfusion intiated, Vss taken, another RN verififed with the transfusion. Patient tolerated the 1st 15minutes with no adverse reaction.
--- NOTE | 2022-11-25 19:15 | NUR ---
Patient reports of anxiety attack, having difficulty breathing. VSS taken, B/P 167/57, RR 26, 02 98% 4L/NC in use. Patient c/o chest tightness. Attempted several phone to reach the Doctor for orders with no avail. This nurse administered Morphine at 1320.
--- NOTE | 2022-11-25 19:19 | NUR ---
Patient's son came to the nurses station reports that his mother is having anxiety attack again. Dr. Cardenas was notifed at 1442 and ordered ativan 0.5mg. Medication administered.
--- NOTE | 2022-11-25 19:21 | NUR ---
Patient was breathing rapidly with 0xgyen level of 89% 5L/NC. Nasal cannula removed and applied patient's home use [facility] portable ventilator.
[2022-11-25 19:23] LABS: ARTERIAL BLD GAS O2 SATURATION 96.8 % (92-100); ARTERIAL BLD GAS TCO2 CT 39.1; ARTERIAL BLOOD GAS HCO3 36.8 meq/L (22-26); ARTERIAL BLOOD GAS PO2 94.1 mmHg (80-100); ARTERIAL BLOOD GAS pH 7.32 (7.35-7.45)
[2022-11-25 19:26] LABS: ARTERIAL BLOOD GAS PCO2 73.6 mmHg (35-45)
--- NOTE | 2022-11-25 20:15 | NUR ---
PT BLOOD TRANSFUSION COMPLETE. RIJ FLUSHES WITHOUT PROBLEM. PT IS IN BED, ALERT AND ORIENTED X4. APPEARS DYSPNEIC IN BED. LUNGS COARSE BILATERALLY. ABD SOFT. HAS KELLY TO BSD WITH YELLOW URINE. BILATERAL ARM/HAND EDEMA NOTED. PT HAS BLE SPLINTS ON, DRSG'S D/I. S/P ORIF OF BOTH ANKLES. REPLACED ICE PACK AT THIS TIME. HEELS IN SMALL HEEL PROTECTORS, FEET EDEMATOUS, PULSES PRESENT AND MARKED. ABLE TO DO ANKLE PUMPS. DOES REPORT MILD NEUROPATHY OF FEET. DC'D INT FROM LAC, MOSTLY PULLED OUT, ANGIOCATH INTACT. PT REPORTS SHE WILL LET US KNOW WHEN SHE WANTS ON HER TRILOGY OR BIPAP.
--- NOTE | 2022-11-25 20:44 | NUR ---
PT BECOMES ANXIOUS WITH BREATHING TREATMENT, ASKING FOR ATIVAN, TOO EARLY TO DOSE. GIVEN MORPHINE 2MG IVP AT THIS TIME. OXYGEN AT 5L/NC.
--- NOTE | 2022-11-25 20:50 | NUR ---
PT REPORTS RELIEF OF ANXIETY WITH MORPHINE. HS MEDS GIVEN, RESTARTED ON HER HOME MEDS. REPOSITIONED TO LEFT SIDE, HAS UNSTAGEABLE PRESSURE ULCER TO COCCYX, MEPILEX INTACT. PT NOT READY FOR BED YET.
--- NOTE | 2022-11-26 00:10 | NUR ---
PT DOZING INTERMITTENTLY, PLACED ON HER TRILOGY BY RT. HGB=8.3 AFTER TRANSFUSION.
[2022-11-26 00:38] LABS: HEMATOCRIT 25.9 % (37.0-47.0); HEMOGLOBIN 8.3 g/dl (12.5-16.0)
[2022-11-26 03:46] VITALS: BP 155/47; PULSE 70; TEMP 98.3
--- NOTE | 2022-11-26 05:52 | NUR ---
PT WANTS TO HAVE HER TRILOGY OFF, SHE REPORTS HAVING ANXIETY WHEN SHE FIRST REMOVES IT. MEDICATED HER WITH MORPHINE 2MG IVP NOW AND WILL WAIT UNTIL SHE FEELS COMFORTABLE TO REMOVE THE TRILOGY.
--- NOTE | 2022-11-26 06:00 | NUR ---
PT READY FOR TRILOGY TO BE OFF, SWITCHED TO HER NC AT 5L, TOLERATED WELL. MEDICATED NOW WITH ORAL ATIVAN 0.5MG TO PREVENT AN ANXIETY ATTACK. APPEARS COMFORTABLE.
[2022-11-26 06:38] LABS: BASO % 0.1 % (0.0-2.0); EOS # 0.3 K/mm3 (0.0-0.7); GRAN # 5.7 K/mm3 (1.4-6.5); GRAN % 62.2 % (42.2-75.2); LYMPH # 2.1 K/mm3 (1.2-3.4); LYMPH % 22.6 % (20.0-51.0); MEAN CELL VOLUME 99 fl (80.0-100.0); MEAN CORPUSCULAR HGB CONC 31 g/dl (33.0-37.0); MEAN PLATELET VOLUME 10.9 fl (7.4-10.4); MONO % 11.2 % (1.7-9.3); PLATELET COUNT 120 K/mm3 (130-400); RED BLOOD COUNT 2.78 M/mm3 (4.10-5.30); REDCELL DISTRIBUTION WIDTH-CV 16.5 % (11.5-14.5)
[2022-11-26 06:47] LABS: HEMATOCRIT 27.5 % (37.0-47.0); HEMOGLOBIN 8.5 g/dl (12.5-16.0); MEAN CORPUSCULAR HEMOGLOBIN 31 pg (27-31)
[2022-11-26 06:49] LABS: ALBUMIN 2.2 gm/dL (3.5-5.0); BILIRUBIN,TOTAL 0.8 mg/dL (0.2-1.2); CALCIUM 8.7 mg/dL (8.4-10.2); CREATININE, serum 0.58 mg/dL (0.57-1.11); MAGNESIUM 1.9 mg/dL (1.6-2.6); PHOSPHOROUS 2.4 mg/dL (2.3-4.7); TOTAL PROTEIN 5.5 gm/dL (6.2-8.1)
[2022-11-26 07:24] VITALS: BP 146/52; PULSE 80; TEMP 98.4
--- NOTE | 2022-11-26 09:00 | NUR ---
Pt. sitting up in bed. Pt. is A&OX3, assessment complete. TLC to rt. IJ patent, dressing intact. Pt. denies pain or other needs, call light within reach.
[2022-11-26 11:43] VITALS: BP 157/62; PULSE 78; TEMP 98.4
[2022-11-26 15:24] VITALS: BP 142/53; PULSE 87; TEMP 98.3
--- NOTE | 2022-11-26 16:24 | NUR ---
Transportation Officer spoke with Hospitalist who recommends referral to [facility]. SW contacted Sonu at [facility] and faxed referral. Sonu advised they can accept referral and have bed availability. SW collaborated with Hospitalist and discharge likely tomorrow. SW met with patient to provide update. SW spoke with patient about [facility] and rationale for referral. Patient is agreeable to discharge to [facility]. SW also contacted patient's son, Go and provided update. Discharge Plan: [facility]
[2022-11-26 19:16] VITALS: BP 131/54; PULSE 71; TEMP 97.6
[2022-11-26 23:35] VITALS: BP 152/63; PULSE 71; TEMP 97.4
--- NOTE | 2022-11-27 01:05 | NUR ---
PT HAD BEEN PLACED ON BIPAP @ 2100. PT SHORTLY THEREAFTER DEMANDED REMOVAL OF MASK AND STATED WOULD NOT GO BACK ON UNTIL SPEAKING WITH HER SON. PT LATER AGREED TO WEAR WITH TIMING THAT IS AGREEABLE WITH ANXIETY AND PAIN MEDS BEING GIVEN. HAVE RETURNED [address] TIMES TO ATTEMPT TO PLACE ON BIPAP, PT CONTINUES TO REFUSE AND STATES SHE WILL WEAR LATER. WILL RETURN TO ATTEMPT PLACEMENT. I HAVE SPOKEN WITH PT REGARDING TO WHY IT IS IMPORTANT THAT SHE WEARS THE BIPAP, AND WHILE SHE STATES SHE AGREES AND WILL WEAR, SHE CONTINUES TO BE NONCOMPLIANT. ADDITIONALLY, HAVE SPOKEN WITH PT REGARDING THE CONSEQUENCES OF HER NOT WEARING THE BIPAP BECAUSE OF HER HISTORY OF HAVING SIGNFICANTLY HIGH PaCO2 LEVELS THAT WILL LIKELY INCREASE TO THE POINT THAT SHE WILL BECOME UNRESPONSIVE. PT IS CURRENTLY A DNR/DNI, SO INTUBATION IS NOT TO OCCUR. BECAUSE OF HER STATUS, I DID INFORM HER THAT THERE IS A LIKELYHOOD HER PaCO2 LEVELS COULD REACH A DETRIMENTAL LEVEL THAT IS LIFE THREATENING TO THE POINT THAT RESPIRATORY INTERVENTION WILL NOT BE ABLE TO CORRECT.
--- NOTE | 2022-11-27 01:24 | NUR ---
THIS RT WAS ABLE TO SPEAK TO PATIENT AND EXPLAIN SCENARIO OF POTENIAL HARMS THAT COULD OCCUR IF PT REFUSED BIPAP. PT AGREED AND BIPAP WAS PLACED ON PT AT THIS TIME.
--- NOTE | 2022-11-27 01:28 | NUR ---
SHIFT REPORT FROM ELIZABETH MONACO. PATIENT IN BED ON ROOM ENTRY. VERY DROWSY AND HARD TO AWAKEN. REFUSED HS MEDS INITIALLY BUT UPON BEING MORE AWAKE AGREED TO TAKE THEM. HAS BEEN REFUSING BIPAP MOST OF THE NIGHT PER RT. SEE RT NOTE. CURRENTLY BIPAP IS ON. KELLY TO DD WITH CLOUDY YELLOW OUTPUT. BILATERAL LEGS ARE CDI WITH IMMOBILZERS IN PLACE. RIJ PATENT WITH GOOD BLOOD RETURN. HAD SOFT FORMED BM ON BEDPAN AND COCCYX WOUND DRESSING WAS CHANGED AT THAT TIME. DENIES ADDITIONAL NEEDS. CALL LIGHT IN REACH.
[2022-11-27 03:32] VITALS: BP 131/51; PULSE 62; TEMP 97.9
[2022-11-27 05:24] LABS: BASO % 0.1 % (0.0-2.0); EOS # 0.2 K/mm3 (0.0-0.7); EOS % 2.4 % (0.0-4.0); GRAN # 5.2 K/mm3 (1.4-6.5); GRAN % 63.5 % (42.2-75.2); LYMPH # 1.7 K/mm3 (1.2-3.4); LYMPH % 20.9 % (20.0-51.0); MEAN CELL VOLUME 101 fl (80.0-100.0); MEAN CORPUSCULAR HGB CONC 31 g/dl (33.0-37.0); MEAN PLATELET VOLUME 10.8 fl (7.4-10.4); MONO % 12.1 % (1.7-9.3); PLATELET COUNT 118 K/mm3 (130-400); RED BLOOD COUNT 2.74 M/mm3 (4.10-5.30); REDCELL DISTRIBUTION WIDTH-CV 16.4 % (11.5-14.5)
[2022-11-27 05:34] LABS: HEMATOCRIT 27.7 % (37.0-47.0); HEMOGLOBIN 8.5 g/dl (12.5-16.0); MEAN CORPUSCULAR HEMOGLOBIN 31 pg (27-31)
[2022-11-27 05:36] LABS: ALBUMIN 2.2 gm/dL (3.5-5.0); CALCIUM 8.9 mg/dL (8.4-10.2); CREATININE, serum 0.57 mg/dL (0.57-1.11); MAGNESIUM 1.9 mg/dL (1.6-2.6); PHOSPHOROUS 2.1 mg/dL (2.3-4.7); POTASSIUM 4.2 mmol/L (3.5-4.5)
[2022-11-27 07:25] VITALS: BP 142/66; PULSE 73; TEMP 97.9
--- NOTE | 2022-11-27 08:30 | NUR ---
Pt. sitting up in bed. Pt. is A&OX3, assessment complete. Pt. taken of BIPAP at this time to eat breakfast. Switched to 5 L NC. Pt. reports back pain at a 5 on pain scale, giving pain meds. Pt. denies further needs, call light within reach.
[2022-11-27 11:27] VITALS: BP 155/63; PULSE 77; TEMP 99.3
[2022-11-27] MEDS ORDERED: LEVEMIR FLEX100 U/ML SQ (11:27)
[2022-11-27] MEDS ORDERED: PROTONIX 40MG T40 MG PO (11:27)
[2022-11-27] MEDS ORDERED: SEROQUEL 2525 MG/TAB PO (11:27)
[2022-11-27] MEDS ORDERED: NOVOLOG FLEX100 U/ML SQ (11:28)
[2022-11-27] MEDS ORDERED: PERCOCET 325 MG1 TA3 PO (11:29)
[2022-11-27 15:21] VITALS: BP 156/53; PULSE 82; TEMP 98.5
[2022-11-27] MEDS ORDERED: HEPARIN SOD5000 U/ML SQ (15:43)
--- NOTE | 2022-11-27 16:22 | NUR ---
Watchmaker Apprentice was contacted by Sonu at [facility] who advised they can accept today, however transport could be no earlier than 1729. MITCHEL set up EMS transport with [facility] for 1729. MITCHEL updated patient and family on discharge. Patient is agreeable and met with Sonu at bedside. MITCHEL was notified by [facility] that EMS was called for an emergent transport to [place] from our ED. Carlos at EMS can no longer do a [facility] transport due to this. [facility], [facility], and [facility] are also not available. No transport available for this evening. MITCHEL notified Hospitalist and Sonu at [facility]. Discharge cancelled. Sonu is anticipating being able to accept patient tomorrow and will call immediately after his 0830 staff meeting. MITCHEL updated patient on cancelled discharge. Discharge Plan: [facility]
[2022-11-27 19:15] VITALS: BP 124/58; PULSE 66; TEMP 98.3
--- NOTE | 2022-11-27 22:15 | NUR ---
SHIFT REPORT FROM ELIZABETH MONACO. PATIENT IN BED ON ROOM ENTRY. SON AT BEDSIDE. ALERT BUT REMAINS CONFUSED AT TIMES. BIPAP REMOVED TO TAKE HS MEDS AND PATIENT HAD EPISODE OF ANXIETY, SEROQUEL WAS GIVEN AND RT ADMINISTERED THERAPIES AND ANXIETY WAS RESOLVED. BIPAP ON AT THIS TIME. KELLY TO DD WITH CLOUDY DONAL URINE. DENIES ADDITOINAL NEEDS AT THIS TIME. CALL LIGHT IN REACH.
[2022-11-27 23:37] VITALS: BP 105/68; PULSE 63; TEMP 98.3
[2022-11-28 03:34] VITALS: BP 135/61; PULSE 71; TEMP 97.5
[2022-11-28 05:11] LABS: ALBUMIN 2.2 gm/dL (3.5-5.0); CALCIUM 9.1 mg/dL (8.4-10.2); CREATININE, serum 0.56 mg/dL (0.57-1.11); MAGNESIUM 1.9 mg/dL (1.6-2.6); PHOSPHOROUS 2.6 mg/dL (2.3-4.7); POTASSIUM 4.3 mmol/L (3.5-4.5)
--- NOTE | 2022-11-28 05:41 | NUR ---
NOTIFIED BLANCA MEJÍA OF [facility]. NO NEW ORDERS AT THIS TIME.
[2022-11-28 07:53] VITALS: BP 127/52; PULSE 72; TEMP 97.6
--- NOTE | 2022-11-28 09:00 | NUR ---
Pt. sitting up in bed on BIPAP at this time. Pt. is A&OX3, assessment complete. TLC to rt. IJ patent. Dressing to coccyx cdi. Pt. denies pain at this time. Call light within reach.
--- NOTE | 2022-11-28 11:30 | NUR ---
Report called to CARLOS ENRIQUE Lantigua at [facility] in [place].
--- NOTE | 2022-11-28 11:32 | NUR ---
Department Mgr spoke with Sonu at [facility] who advised they can accept patient today. Transport scheduled with [facility] at 1100. MITCHEL notified patient's son, Go of discharge and transport time. MITCHEL faxed dishcarge orders to Sonu at [facility]. Discharge Plan: [facility]
--- NOTE | 2022-11-28 11:53 | NUR ---
Ambulance services here to transport pt. to [facility] [place]. Report give to EMS. Pt. transferred to stretcher.
== END 2022-11-28 11:45 | DRG 492 ==
LOC: COL.ER 13:40 → ICU 18:16 → SURG 11-25 14:13
PROVIDERS: Family Medicine; Internal Medicine; Internal Medicine Sleep Medicine; Nurse Practitioner Family; Orthopaedic Surgery; Physician Assistant; ADMIT Student in an Organized Health Care Education/Training Program
PROC: 02HV33Z Insertion of Infusion Device into Superior Vena Cava, Percutaneous Approach (ICD-10-PCS; 2022-11-17)
PROC: 0BH17EZ Insertion of Endotracheal Airway into Trachea, Via Natural or Artificial Opening (ICD-10-PCS; 2022-11-17)
PROC: 5A1955Z Respiratory Ventilation, Greater than 96 Consecutive Hours (ICD-10-PCS; 2022-11-17)
PROC: 0QSH04Z Reposition Left Tibia with Internal Fixation Device, Open Approach (ICD-10-PCS; 2022-11-20)
PROC: 0QSG04Z Reposition Right Tibia with Internal Fixation Device, Open Approach (ICD-10-PCS; principal; 2022-11-20 14:30)
PROC: 5A09557 Assistance with Respiratory Ventilation, Greater than 96 Consecutive Hours, Continuous Positive Airway Pressure (ICD-10-PCS; 2022-11-22)
DX: S82.102A Unspecified fracture of upper end of left tibia, initial encounter for closed fracture (principal); G93.41 Metabolic encephalopathy; J96.22 Acute and chronic respiratory failure with hypercapnia; J96.21 Acute and chronic respiratory failure with hypoxia; S82.201A Unspecified fracture of shaft of right tibia, initial encounter for closed fracture; E87.0 Hyperosmolality and hypernatremia; J84.9 Interstitial pulmonary disease, unspecified; Z66 Do not resuscitate; Z96.642 Presence of left artificial hip joint; W18.39XA Other fall on same level, initial encounter; D64.9 Anemia, unspecified; E11.649 Type 2 diabetes mellitus with hypoglycemia without coma; D69.6 Thrombocytopenia, unspecified; S82.401A Unspecified fracture of shaft of right fibula, initial encounter for closed fracture; I95.9 Hypotension, unspecified; E11.42 Type 2 diabetes mellitus with diabetic polyneuropathy; E78.5 Hyperlipidemia, unspecified; K21.9 Gastro-esophageal reflux disease without esophagitis; F32.A Depression, unspecified; I25.10 Atherosclerotic heart disease of native coronary artery without angina pectoris; J44.9 Chronic obstructive pulmonary disease, unspecified; Z20.822 Contact with and (suspected) exposure to COVID-19; R50.9 Fever, unspecified; Z85.6 Personal history of leukemia; Z88.5 Allergy status to narcotic agent; Z88.8 Allergy status to other drugs, medicaments and biological substances; Z99.81 Dependence on supplemental oxygen; Y93.89 Activity, other specified; Y92.89 Other specified places as the place of occurrence of the external cause; Z90.49 Acquired absence of other specified parts of digestive tract; Z90.710 Acquired absence of both cervix and uterus; Z79.82 Long term (current) use of aspirin; Z79.4 Long term (current) use of insulin; Z79.2 Long term (current) use of antibiotics; Z95.5 Presence of coronary angioplasty implant and graft; Z23 Encounter for immunization
CPT/HCPCS: C1713; C1751; C9113; J0330; J0456; J0690; J1644; J1815; J1885; J2250; J2270; J2405; J2543; J2704; J2920; J3010; J3370; J7030; J7042; J7050; J7060; J7070; J7120; L1830; P9016; P9040